=== PATIENT | female | born 1985 | race African-American/Black ===

== ENCOUNTER 2018-12-12 11:20 | Emergency (ER) | payer SELFPAY ==
[~2018-12-12] VITALS: Ht 157.5 cm; Wt 66.0 kg
[2018-12-12] MEDS ORDERED: SODIUM CHLORIDE 0.9% 1,000 ML IV ONE (11:44)
[2018-12-12] MEDS ORDERED: MORPHINE SULFATE 4 MG/ML CPJ (NOT FOR IM USE) IV STA (11:44)
[2018-12-12] MEDS ORDERED: FAMOTIDINE 20MG/2ML VIAL IV STA (11:44)
[2018-12-12] MEDS ORDERED: ONDANSETRON HCL 4MG/2ML INJ IV STA (11:44)
[2018-12-12 12:11] LABS: CLARITY URINE CLEAR (CLEAR); COLOR URINE YELLOW (YELLOW); KETONES URINE 3+ (NEGATIVE); LEUKOCYTE ESTERASE URINE NEGATIVE (NEGATIVE); NITRITE URINE NEGATIVE (NEGATIVE); OCCULT BLOOD URINE NEGATIVE (NEGATIVE); PH URINE 7.5 (4.5-8.0); PROTEIN URINE 2+ (NEGATIVE); SPECIFIC GRAVITY URINE 1.028 (1.005-1.030); UROBILINOGEN URINE 0.2 E.U./dL (0.2-1.0)
[2018-12-12 12:21] LABS: CHLORIDE 110 mEq/L (98-107)
[2018-12-12 12:24] LABS: BASOPHILS % 0.5 % (0.0-2.0); HEMATOCRIT. 42.7 % (36.0-48.0); HEMOGLOBIN. 14.3 g/dL (12.0-16.0); INR 1.1; LYMPHOCYTES % 12.6 % (20.0-50.0); MEAN CORPUSCULAR VOLUME 98.7 fL (81.0-99.0); MONOCYTES % 3.2 % (2.0-8.0); NEUTROPHILS % 83.7 % (40.0-76.0); PLATELET 322 x1000/uL (130-400); PROTHROMBIN TIME 11.2 sec (9.6-11.0); RED BLOOD CELL COUNT 4.33 mill/uL (4.2-5.4); RED CELL DISTRIBUTION WIDTH 13.6 % (11.6-14.6)
[2018-12-12 12:26] LABS: ETHANOL BLOOD < 10 mg/dL
[2018-12-12 13:44] LABS: *BENZODIAZEPINES SCREEN URINE NEGATIVE (NEGATIVE); *COCAINE SCREEN URINE NEGATIVE (NEGATIVE); METHADONE URINE SCREEN NEGATIVE (NEGATIVE); OPIATES URINE SCREEN NEGATIVE (NEGATIVE); PHENCYCLIDINE URINE SCREEN NEGATIVE (NEGATIVE)
[2018-12-12 13:45] LABS: *AMPHETAMINES SCREEN URINE NEGATIVE (NEGATIVE)
[2018-12-12 13:47] LABS: *BARBITURATES SCREEN URINE NEGATIVE (NEGATIVE)
[2018-12-12] MEDS ORDERED: ONDANSETRON HCL 4MG/2ML INJ IV ONE (14:00)
[2018-12-12 14:10] LABS: CANNABINOID URINE SCREEN PRESUMTIVE POSITIVE (NEGATIVE)
[2018-12-12 15:26] VITALS: BP 132/77
== END 2018-12-12 15:35 | disposition home or self-care (01) ==
LOC: ER 12:26
DX: R10.13 Epigastric pain (principal); R11.2 Nausea with vomiting, unspecified; F12.10 Cannabis abuse, uncomplicated; R03.0 Elevated blood-pressure reading, without diagnosis of hypertension; Z98.890 Other specified postprocedural states; Z88.1 Allergy status to other antibiotic agents
CPT/HCPCS: 36415; 74176; 80053; 80305; 80320; 81003; 81025; 83690; 85025; 85610; 96361; 96374; 96375; 96376; 99284; J2270; J2405; J3490; J7030; G0480

== ENCOUNTER 2019-05-13 10:32 | Emergency (ER) | payer MEDICAID, MEDICARE ==
[~2019-05-13] VITALS: Ht 157.5 cm; Wt 62.0 kg
[2019-05-13] MEDS ORDERED: SODIUM CHLORIDE 0.9% 1000ML BAG (SEPSIS BOLUS) IV ONE (11:15)
[2019-05-13] MEDS ORDERED: KETOROLAC 30MG/ML VIAL IV ONE (11:15)
[2019-05-13] MEDS ORDERED: ONDANSETRON HCL 4MG/2ML INJ IV ONE (11:15)
[2019-05-13 11:30] LABS: BASOPHILS % 0.6 % (0.0-2.0); EOSINOPHILS % 0.9 % (0.0-5.0); HEMATOCRIT. 45.7 % (36.0-48.0); HEMOGLOBIN. 15.3 g/dL (12.0-16.0); LYMPHOCYTES % 24.1 % (20.0-50.0); MEAN CORPUSCULAR HEMOGLOBIN 34.3 pg (28.0-32.0); MEAN CORPUSCULAR VOLUME 102.3 fL (81.0-99.0); MEAN PLATELET VOLUME 8.3 fl (7.4-10.4); MONOCYTES % 5.8 % (2.0-8.0); NEUTROPHILS % 68.6 % (40.0-76.0); PLATELET 354 x1000/uL (130-400); RED BLOOD CELL COUNT 4.46 mill/uL (4.2-5.4); RED CELL DISTRIBUTION WIDTH 13.4 % (11.6-14.6)
[2019-05-13 11:35] LABS: CHLORIDE 113 mEq/L (98-107)
[2019-05-13 11:37] LABS: PROTHROMBIN TIME 10.7 sec (9.6-11.0)
[2019-05-13] MEDS ORDERED: METOCLOPRAMIDE HCL 10MG/2ML VIAL IV ONE ×3 (12:00→18:15)
[2019-05-13] MEDS ORDERED: MORPHINE SULFATE 4 MG/ML CPJ (NOT FOR IM USE) IV ONE ×2 (12:00→13:45)
[2019-05-13 13:51] LABS: CLARITY URINE CLEAR (CLEAR); COLOR URINE YELLOW (YELLOW); KETONES URINE 3+ (NEGATIVE); LEUKOCYTE ESTERASE URINE NEGATIVE (NEGATIVE); NITRITE URINE NEGATIVE (NEGATIVE); OCCULT BLOOD URINE NEGATIVE (NEGATIVE); PROTEIN URINE NEGATIVE (NEGATIVE); SPECIFIC GRAVITY URINE 1.017 (1.005-1.030); UROBILINOGEN URINE 0.2 E.U./dL (0.2-1.0)
[2019-05-13 14:03] LABS: *AMPHETAMINES SCREEN URINE NEGATIVE (NEGATIVE); *BARBITURATES SCREEN URINE NEGATIVE (NEGATIVE); *COCAINE SCREEN URINE NEGATIVE (NEGATIVE)
[2019-05-13 14:04] LABS: *BENZODIAZEPINES SCREEN URINE NEGATIVE (NEGATIVE); METHADONE URINE SCREEN NEGATIVE (NEGATIVE); PHENCYCLIDINE URINE SCREEN NEGATIVE (NEGATIVE)
[2019-05-13 14:10] LABS: OPIATES URINE SCREEN PRESUMTIVE POSITIVE (NEGATIVE)
[2019-05-13 14:11] LABS: CANNABINOID URINE SCREEN PRESUMTIVE POSITIVE (NEGATIVE)
[2019-05-13] MEDS ORDERED: MORPHINE SULFATE 2 MG/ML CPJ (NOT FOR IM USE) IV ONE (18:15)
[2019-05-13 19:50] VITALS: BP 126/81
== END 2019-05-13 19:59 | disposition home or self-care (01) ==
LOC: ER 10:32
DX: F12.19 Cannabis abuse with unspecified cannabis-induced disorder (principal); N20.0 Calculus of kidney; R16.0 Hepatomegaly, not elsewhere classified; R82.4 Acetonuria; N17.0 Acute kidney failure with tubular necrosis; D72.829 Elevated white blood cell count, unspecified; R10.13 Epigastric pain; R11.2 Nausea with vomiting, unspecified; E86.0 Dehydration; R26.9 Unspecified abnormalities of gait and mobility; R53.83 Other fatigue; F12.10 Cannabis abuse, uncomplicated; F32.9 Major depressive disorder, single episode, unspecified; F10.20 Alcohol dependence, uncomplicated; K21.9 Gastro-esophageal reflux disease without esophagitis; Z88.3 Allergy status to other anti-infective agents
CPT/HCPCS: 36415; 71045; 74176; 80053; 80305; 81003; 81025; 83690; 85025; 85610; 93005; 96374; 96375; 96376; 99284; J1885; J2270; J2405; J2765; J7030

== ENCOUNTER 2019-05-13 23:22 | Emergency (ER) | payer MEDICAID ==
[~2019-05-13] VITALS: Ht 157.5 cm; Wt 62.0 kg
[2019-05-14] MEDS ORDERED: MAGNESIUM/ALUMINUM HYDROXIDE/SIMETHICONE 30ML UDC PO STA (00:17)
[2019-05-14] MEDS ORDERED: VISCOUS LIDOCAINE 2% 15 ML UDC PO STA (00:17)
[2019-05-14] MEDS ORDERED: ONDANSETRON HCL 4MG/2ML INJ IM STA (00:17)
[2019-05-14 00:47] LABS: HEMATOCRIT. 42.7 % (36.0-48.0); HEMOGLOBIN. 14.4 g/dL (12.0-16.0); MEAN CORPUSCULAR HEMOGLOBIN 34.9 pg (28.0-32.0); MEAN CORPUSCULAR VOLUME 103.3 fL (81.0-99.0); MEAN PLATELET VOLUME 8.6 fl (7.4-10.4); PLATELET 308 x1000/uL (130-400); RED BLOOD CELL COUNT 4.14 mill/uL (4.2-5.4); RED CELL DISTRIBUTION WIDTH 13.4 % (11.6-14.6)
[2019-05-14 00:55] LABS: CHLORIDE 110 mEq/L (98-107)
[2019-05-14 01:35] LABS: PLATELET ESTIMATE NORMAL
[2019-05-14 03:00] VITALS: BP 117/69
== END 2019-05-14 03:12 | disposition home or self-care (01) ==
LOC: ER 23:22
DX: R10.9 Unspecified abdominal pain (principal); R11.10 Vomiting, unspecified; F12.10 Cannabis abuse, uncomplicated; Z88.1 Allergy status to other antibiotic agents
CPT/HCPCS: 36415; 80053; 83690; 85025; 96372; 99283; J2405

== ENCOUNTER 2019-07-11 07:40 | Emergency (ER) | payer MEDICAID ==
[~2019-07-11] VITALS: Ht 157.5 cm; Wt 60.0 kg
[2019-07-11] MEDS ORDERED: METOCLOPRAMIDE HCL 10MG/2ML VIAL IV ONE (09:15)
[2019-07-11] MEDS ORDERED: FAMOTIDINE 20MG/2ML VIAL IV ONE (09:15)
[2019-07-11] MEDS ORDERED: SODIUM CHLORIDE 0.9% 1,000 ML IV ONE (09:15)
[2019-07-11 09:30] LABS: BASOPHILS % 0.3 % (0.0-2.0); EOSINOPHILS % 0.2 % (0.0-5.0); HEMATOCRIT. 39.5 % (36.0-48.0); HEMOGLOBIN. 13.6 g/dL (12.0-16.0); LYMPHOCYTES % 23.7 % (20.0-50.0); MEAN CORPUSCULAR VOLUME 98.5 fL (81.0-99.0); MEAN PLATELET VOLUME 8.3 fl (7.4-10.4); MONOCYTES % 4.8 % (2.0-8.0); PLATELET 236 x1000/uL (130-400); RED BLOOD CELL COUNT 4.01 mill/uL (4.2-5.4)
[2019-07-11 09:38] LABS: CHLORIDE 113 mEq/L (98-107)
[2019-07-11 09:41] LABS: ETHANOL BLOOD 25 mg/dL
[2019-07-11] MEDS ORDERED: ONDANSETRON HCL 4MG/2ML INJ IV ONE (10:15)
[2019-07-11] MEDS ORDERED: MORPHINE SULFATE 4 MG/ML CPJ (NOT FOR IM USE) IV ONE ×2 (10:30→14:30)
[2019-07-11 10:47] LABS: HCG SCREEN NEGATIVE
[2019-07-11] MEDS ORDERED: HALOPERIDOL LACTATE 5MG/ML VIAL IM ONE (12:45)
[2019-07-11 17:15] VITALS: BP 137/68
== END 2019-07-11 17:16 | disposition home or self-care (01) ==
LOC: ER 07:40
DX: R10.9 Unspecified abdominal pain (principal); F10.10 Alcohol abuse, uncomplicated; F12.10 Cannabis abuse, uncomplicated; R19.7 Diarrhea, unspecified; F17.200 Nicotine dependence, unspecified, uncomplicated; Z88.1 Allergy status to other antibiotic agents
CPT/HCPCS: 36415; 74177; 80053; 80320; 83690; 84703; 85025; 96361; 96372; 96374; 96375; 99284; J1630; J2270; J2405; J2765; J3490; J7030; Z7610; G0480

== ENCOUNTER 2020-02-22 08:16 | Emergency (ER) | payer MEDICAID, MEDICARE ==
[~2020-02-22] VITALS: Ht 162.6 cm; Wt 54.0 kg
[2020-02-22] MEDS ORDERED: MORPHINE SULFATE 4 MG/ML CPJ (NOT FOR IM USE) IV STA (09:16)
[2020-02-22] MEDS ORDERED: ONDANSETRON HCL 4MG/2ML INJ IV STA (09:16)
[2020-02-22] MEDS ORDERED: SODIUM CHLORIDE 0.9% 1,000 ML IV ONE (09:16)
[2020-02-22] MEDS ORDERED: ONDANSETRON HCL 4MG/2ML INJ ONE (09:23)
[2020-02-22 09:41] LABS: BASOPHILS % 0.2 % (0.0-2.0); EOSINOPHILS % 0.1 % (0.0-5.0); HEMATOCRIT. 40.3 % (36.0-48.0); HEMOGLOBIN. 13.7 g/dL (12.0-16.0); LYMPHOCYTES % 11.8 % (20.0-50.0); MEAN CORPUSCULAR HEMOGLOBIN 34.7 pg (28.0-32.0); MEAN CORPUSCULAR VOLUME 101.8 fL (81.0-99.0); MEAN PLATELET VOLUME 8.9 fl (7.4-10.4); MONOCYTES % 5.8 % (2.0-8.0); NEUTROPHILS % 82.1 % (40.0-76.0); PLATELET 257 x1000/uL (130-400); RED BLOOD CELL COUNT 3.95 mill/uL (4.2-5.4); RED CELL DISTRIBUTION WIDTH 13.4 % (11.6-14.6)
[2020-02-22 09:45] LABS: CHLORIDE 110 mEq/L (98-107)
[2020-02-22 09:50] LABS: INR 1.1; PROTHROMBIN TIME 11.9 sec (9.6-11.0)
[2020-02-22 10:09] LABS: HCG SCREEN POSITIVE
[2020-02-22] MEDS ORDERED: METOCLOPRAMIDE HCL 5MG TABLET PO ONE (11:30)
[2020-02-22] MEDS ORDERED: ACETAMINOPHEN 325MG TABLET PO ONE (11:30)
[2020-02-22] MEDS ORDERED: LORAZEPAM 2MG/ML CPJ IV ONE (13:45)
[2020-02-22] MEDS ORDERED: SODIUM CHLORIDE 0.9% 1,000 ML IV SCH (14:51)
[2020-02-22] MEDS ORDERED: ONDANSETRON HCL 4MG/2ML INJ IV PRN (15:00)
[2020-02-22] MEDS ORDERED: DIPHENHYDRAMINE 50MG/ML VIAL IV PRN (15:00)
[2020-02-22] MEDS ORDERED: ACETAMINOPHEN 325MG TABLET PO PRN (15:00)
[2020-02-22 17:30] VITALS: BP 114/63
== END 2020-02-22 19:29 | disposition left against medical advice (07) ==
LOC: ER 08:16 → CANBEDREQ 19:33
DX: F10.20 Alcohol dependence, uncomplicated (principal); R11.2 Nausea with vomiting, unspecified; R10.31 Right lower quadrant pain; R10.32 Left lower quadrant pain; K21.9 Gastro-esophageal reflux disease without esophagitis; Z87.440 Personal history of urinary (tract) infections; Z88.1 Allergy status to other antibiotic agents; Z87.09 Personal history of other diseases of the respiratory system; Y90.9 Presence of alcohol in blood, level not specified
CPT/HCPCS: 36415; 76801; 76817; 80053; 83690; 84702; 84703; 85025; 85610; 93005; 96374; 96375; 99285; J2060; J2270; J2405; J7030; J8597